=== PATIENT | male | born 1995 | race American Indian/Alaskan Native ===

== ENCOUNTER 2016-12-20 02:52 | Emergency (ER) | payer SELFPAY ==
[2016-12-20] MEDS ORDERED: XYLOCAINE 1% MPF 5 mL INFILTRATI ONE (10:06)
[2016-12-20] MEDS ORDERED: ROCEPHIN IM ONE (10:06)
[2016-12-20] MEDS ORDERED: DECADRON PO ONE (10:07)
--- NOTE | 2016-12-20 10:10 | Emergency Department Report ---
ED ENT HPI - General Chief complaint: Sore Throat Stated complaint: SORE THROAT Source: patient Mode of arrival: Ambulatory Limitations: No Limitations - History of Present Illness Initial comments: 21 y/o M presents with a sore throat that started on Saturday. Pt states that he had a noted fever on Saturday. Pt reports to a previous hx of strep in the past as a child. Pt denies any resp distress, chest pain, SOB, or difficulty breathing. Pt has not tried anything OTC at this time. Pt denies any reported sick contacts. Pt reports that he has been told as a child that he had an elevated BP and was told to monitor he denies any chest pain, headache, blurried vision, or jaw pain at this time. Pt states that the pain increases with swallowing. Denies any other URI symptoms, nausea, or vomiting. NKDA, pt is currently on no medications at home. MD complaint: sore throat, difficulty swallowing -: days(s) (4) Location: throat Severity scale (0 -10): 5 Quality: constant Consistency: constant Improves with: rest Worsens with: none Associated Symptoms: fever, pain with swallowing, sore throat. denies: cough, toothache, tinnitus, hearing loss, discharge from ear - Related Data Previous Rx's Medication Instructions Recorded Last Taken Type Amlodipine Besylate [Norvasc] 2.5 mg PO DAILY #30 tab 12/20/16 Unknown Rx Clindamycin [Clindamycin CAP] 300 mg PO Q8H #30 cap 12/20/16 Unknown Rx predniSONE [Deltasone] 10 mg PO QDAY #3 tab 12/20/16 Unknown Rx Allergies Allergy/AdvReac Type Severity Reaction Status Date / Time No Known Allergies Allergy Unverified 12/20/16 03:06 ED Dental HPI - General Chief complaint: Sore Throat Stated complaint: SORE THROAT Source: patient Mode of arrival: Ambulatory Limitations: No Limitations - History of Present Illness MD complaint: sore throat - Related Data Previous Rx's Medication Instructions Recorded Last Taken Type Amlodipine Besylate [Norvasc] 2.5 mg PO DAILY #30 tab 12/20/16 Unknown Rx Clindamycin [Clindamycin CAP] 300 mg PO Q8H #30 cap 12/20/16 Unknown Rx predniSONE [Deltasone] 10 mg PO QDAY #3 tab 12/20/16 Unknown Rx Allergies Allergy/AdvReac Type Severity Reaction Status Date / Time No Known Allergies Allergy Unverified 12/20/16 03:06 ED Review of Systems ROS: Stated complaint: SORE THROAT Other details as noted in HPI Constitutional: chills, fever Eyes: denies: eye pain, eye discharge, vision change ENT: throat pain. denies: ear pain, dental pain Respiratory: denies: cough, shortness of breath, wheezing Cardiovascular: denies: chest pain, palpitations Gastrointestinal: denies: abdominal pain, nausea, diarrhea Genitourinary: denies: urgency, dysuria Musculoskeletal: denies: back pain, joint swelling, arthralgia Skin: denies: rash, lesions Neurological: denies: headache, weakness, paresthesias Psychiatric: denies: anxiety, depression ED Past Medical Hx - Past Medical History Previous Medical History?: No - Surgical History Past Surgical History?: No - Social History Smoking Status: Current Every Day Smoker Substance Use Type: None - Medications Home Medications: Home Medications Medication Instructions Recorded Confirmed Last Taken Type Amlodipine Besylate [Norvasc] 2.5 mg PO DAILY #30 tab 12/20/16 Unknown Rx Clindamycin [Clindamycin CAP] 300 mg PO Q8H #30 cap 12/20/16 Unknown Rx predniSONE [Deltasone] 10 mg PO QDAY #3 tab 12/20/16 Unknown Rx ED Physical Exam - General Limitations: No Limitations General appearance: alert, in no apparent distress - Head Head exam: Present: atraumatic, normocephalic - Eye Eye exam: Present: normal appearance - ENT ENT exam: Present: other (swelling and erythema noted of bilateral tonsils, pus pockets noted bilaterally, there was no deviation of the uvula, no muffled/hot potato voice, no signs of resp distress noted at this time, airway was patent, no blockage or signs of resp distress) - Neck Neck exam: Present: normal inspection, lymphadenopathy (anterior ) - Respiratory Respiratory exam: Present: normal lung sounds bilaterally. Absent: respiratory distress - Cardiovascular Cardiovascular Exam: Present: regular rate, normal rhythm. Absent: systolic murmur, diastolic murmur, rubs, gallop - Neurological Exam Neurological exam: Present: alert, oriented X3 - Psychiatric Psychiatric exam: Present: normal affect, normal mood - Skin Skin exam: Present: warm, dry, intact, normal color. Absent: rash ED Course Vital Signs 12/20/16 12/20/16 12/20/16 02:57 03:02 08:40 Temperature 99.4 F 99.4 F Pulse Rate 76 69 Respiratory 18 18 16 Rate Blood Pressure 169/88 169/88 164/85 Blood Pressure [Left] O2 Sat by Pulse 99 99 Oximetry 12/20/16 12/20/16 12/20/16 08:41 10:38 10:39 Temperature 98.5 F 98.0 F Pulse Rate 58 L 57 L Respiratory 16 16 16 Rate Blood Pressure Blood Pressure 164/85 155/74 [Left] O2 Sat by Pulse 100 100 100 Oximetry ED Medical Decision Making - Medical Decision Making Rapid strep and mono spot were both conducted on the patient. Both of which were negative. A throat culture has been sent out for the patient at this time. Pt was treated based on clinical presentation and symptoms with Decadron ( 4 mg) and rocephin shot (1 g) here in the ED. Pt was discharged home on Clindamycin TID and prednisone for the swelling for the next 3 days- low dose. Pt was also started on amlodipine low dose for the the elevated BP readings, until he is able to follow-up with PCP. Pt was discharged in stable condition, no resp distress and alert and oriented. No neck stiffness and airway was patent. This case was discussed with Dr. Reed. Critical care attestation.: If time is entered above; I have spent that time in minutes in the direct care of this critically ill patient, excluding procedure time. ED Disposition Clinical Impression: Tonsillitis, Elevated blood pressure reading Disposition: - TO HOME OR SELFCARE Is pt being admited?: No Does the pt Need Aspirin: No Condition: Stable Instructions: Clindamycin (By mouth), Tonsillitis (ED), Low Sodium Diet (ED), Hypertension (ED) Additional Instructions: Please take medications as instructed to you today. Please follow-up with PCP for further evaluation of your blood pressure, uncontrolled blood pressure can be life threatening. Please keep a log of your BP, limit salt, and exercise. Follow-up with PCP within 3-5 days. Please monitor your Blood pressure while take the oral prednisone, which you should start tomorrow as you had a steriod shot today, if still greater than 130/85 please stop the prednisone as this can increased you BP levels. Please return to the ED if your symptoms progress or worsening such as: fever, chills, increased tonsil swelling, shortness of breath , or respiratory distress. Prescriptions: Amlodipine Besylate [Norvasc] 2.5 mg PO DAILY #30 tab Clindamycin [Clindamycin CAP] 300 mg PO Q8H #30 cap predniSONE [Deltasone] 10 mg PO QDAY #3 tab Referrals: PRIMARY CARE, [Primary Care Provider] - 3-5 Days [facility] [Outside] - 3-5 Days [facility] [Outside] - 3-5 Days Forms: Work/School Release Form(ED)
[2016-12-20 10:40] VITALS: BP 155/74
== END 2016-12-20 10:42 | disposition home or self-care (01) ==
LOC: ED 02:52
DX: J03.90 Acute tonsillitis, unspecified (principal); R03.0 Elevated blood-pressure reading, without diagnosis of hypertension; F17.200 Nicotine dependence, unspecified, uncomplicated
CPT/HCPCS: 36415; 86308; 87116; 87430; 96372; 99283; J0696; J8540

== ENCOUNTER 2017-04-08 09:54 | Emergency (ER) | payer SELFPAY ==
[2017-04-08 11:25] VITALS: BP 141/79
[2017-04-08] MEDS ORDERED: DECADRON IM ONE (14:39)
[2017-04-08] MEDS ORDERED: LIDOCAINE VISCOUS 2% PO ONE (14:39)
--- NOTE | 2017-04-08 14:49 | Emergency Department Report ---
ED ENT HPI - General Chief complaint: Sore Throat Stated complaint: SORE THROAT Time Seen by Provider: 04/08/17 13:21 Source: patient Mode of arrival: Ambulatory Limitations: No Limitations - History of Present Illness Initial comments: This is a 21-year-old male nontoxic, well nourished in appearance, no acute signs of distress presents to the ED with c/o of sore throat x3 days. Patient stated this is the 4th time this year that he developed this. Patient denies any drooling, hoarseness, fever, chills, headache, nausea, vomiting, chest pain , shortness of breathe, numbness, tingling, stiff neck. Patient denies any allergies or past medical history. MD complaint: sore throat -: days(s) (3) Location: throat Severity: mild Severity scale (0 -10): 8 Quality: aching Consistency: constant Improves with: none Worsens with: swallowing Associated Symptoms: pain with swallowing, sore throat. denies: fever, cough, gum swelling, toothache, tinnitus, hearing loss, discharge from ear, rhinorrhea - Related Data Previous Rx's Medication Instructions Recorded Last Taken Type Amlodipine Besylate [Norvasc] 2.5 mg PO DAILY #30 tab 12/20/16 Unknown Rx Clindamycin [Clindamycin CAP] 300 mg PO Q8H #30 cap 12/20/16 Unknown Rx predniSONE [Deltasone] 10 mg PO QDAY #3 tab 12/20/16 Unknown Rx Amoxicillin/K Clav Tab [Augmentin 1 each PO Q12HR #20 tablet 04/08/17 Unknown Rx 500 MG TAB] Nystas/Diphen/Xyl Visc/Mylanta 30 ml MM Q4H PRN 10 Days ml 04/08/17 Unknown Rx [Magic Mouthwash] Allergies Allergy/AdvReac Type Severity Reaction Status Date / Time No Known Allergies Allergy Unverified 12/20/16 03:06 ED Dental HPI - General Chief complaint: Sore Throat Stated complaint: SORE THROAT Time Seen by Provider: 04/08/17 13:21 Source: patient Mode of arrival: Ambulatory Limitations: No Limitations - Related Data Previous Rx's Medication Instructions Recorded Last Taken Type Amlodipine Besylate [Norvasc] 2.5 mg PO DAILY #30 tab 12/20/16 Unknown Rx Clindamycin [Clindamycin CAP] 300 mg PO Q8H #30 cap 12/20/16 Unknown Rx predniSONE [Deltasone] 10 mg PO QDAY #3 tab 12/20/16 Unknown Rx Amoxicillin/K Clav Tab [Augmentin 1 each PO Q12HR #20 tablet 04/08/17 Unknown Rx 500 MG TAB] Nystas/Diphen/Xyl Visc/Mylanta 30 ml MM Q4H PRN 10 Days ml 04/08/17 Unknown Rx [Magic Mouthwash] Allergies Allergy/AdvReac Type Severity Reaction Status Date / Time No Known Allergies Allergy Unverified 12/20/16 03:06 ED Review of Systems ROS: Stated complaint: SORE THROAT Other details as noted in HPI Constitutional: denies: chills, fever Eyes: denies: eye pain, eye discharge, vision change ENT: throat pain. denies: ear pain Respiratory: denies: cough, shortness of breath, wheezing Cardiovascular: denies: chest pain, palpitations Endocrine: no symptoms reported Gastrointestinal: denies: abdominal pain, nausea, diarrhea Genitourinary: denies: urgency, dysuria Musculoskeletal: denies: back pain, joint swelling, arthralgia Skin: denies: rash, lesions Neurological: denies: headache, weakness, paresthesias Psychiatric: denies: anxiety, depression Hematological/Lymphatic: denies: easy bleeding, easy bruising ED Past Medical Hx - Past Medical History Previous Medical History?: No - Surgical History Past Surgical History?: No - Social History Smoking Status: Current Every Day Smoker Substance Use Type: Alcohol - Medications Home Medications: Home Medications Medication Instructions Recorded Confirmed Last Taken Type Amlodipine Besylate [Norvasc] 2.5 mg PO DAILY #30 tab 12/20/16 Unknown Rx Clindamycin [Clindamycin CAP] 300 mg PO Q8H #30 cap 12/20/16 Unknown Rx predniSONE [Deltasone] 10 mg PO QDAY #3 tab 12/20/16 Unknown Rx Amoxicillin/K Clav Tab [Augmentin 1 each PO Q12HR #20 tablet 04/08/17 Unknown Rx 500 MG TAB] Nystas/Diphen/Xyl Visc/Mylanta 30 ml MM Q4H PRN 10 Days ml 04/08/17 Unknown Rx [Magic Mouthwash] ED Physical Exam - General Limitations: No Limitations General appearance: alert, in no apparent distress - Head Head exam: Present: atraumatic, normocephalic, normal inspection - Eye Eye exam: Present: normal appearance, PERRL, EOMI. Absent: scleral icterus, conjunctival injection, nystagmus, periorbital swelling, periorbital tenderness Pupils: Present: normal accommodation - ENT ENT exam: Present: mucous membranes moist, TM's normal bilaterally, normal external ear exam - Expanded ENT Exam Expanded Ear exam: Present: normal external inspection Mouth exam: Present: normal external inspection, tongue normal. Absent: drooling, trismus, muffled voice, tongue elevation, laceration Teeth exam: Present: normal inspection Throat exam: Positive: tonsillar erythema, tonsillomegaly (2+), tonsillar exudate, other (Uvula midline. No abscess or swelling noted. ). Negative: R peritonsillar mass, L peritonsillar mass - Neck Neck exam: Present: normal inspection, full ROM. Absent: tenderness, meningismus, lymphadenopathy, thyromegaly - Respiratory Respiratory exam: Present: normal lung sounds bilaterally. Absent: respiratory distress, wheezes, rales, rhonchi, stridor, chest wall tenderness, accessory muscle use, decreased breath sounds, prolonged expiratory - Cardiovascular Cardiovascular Exam: Present: regular rate, normal rhythm, normal heart sounds. Absent: irregular rhythm, systolic murmur, diastolic murmur, rubs, gallop - GI/Abdominal GI/Abdominal exam: Present: soft, normal bowel sounds. Absent: distended, tenderness, guarding, rebound, rigid, diminished bowel sounds - Rectal Rectal exam: Present: deferred - Extremities Exam Extremities exam: Present: normal inspection, full ROM, normal capillary refill. Absent: tenderness, pedal edema, joint swelling, calf tenderness - Back Exam Back exam: Present: normal inspection, full ROM. Absent: tenderness, CVA tenderness (R), CVA tenderness (L), muscle spasm, paraspinal tenderness, vertebral tenderness, rash noted - Neurological Exam Neurological exam: Present: alert, oriented X3, CN II-XII intact, normal gait, reflexes normal - Psychiatric Psychiatric exam: Present: normal affect, normal mood - Skin Skin exam: Present: warm, dry, intact, normal color. Absent: rash ED Course Vital Signs 04/08/17 11:24 Temperature 98.9 F Pulse Rate 62 Respiratory 16 Rate Blood Pressure 141/79 O2 Sat by Pulse 99 Oximetry - Reevaluation(s) Reevaluation #1: 04/08/17 14:59 Patient is speaking in full sentences with no signs of distress noted. ED Medical Decision Making - Medical Decision Making This is a 21-year-old male that presents with tonsillitis with exudate. Patient is stable and was examined by me. No signs of abscess or swelling noted. Uvula midline. Patient is not drooling and speaking in full sentences. Negative strep swab. Decadron 10mg IM and Lidocaine visous is ordered for patient to receive in the ED. Due to patient stated has a recurrent infection and the tonsils I will give patient Augmentin distress. Patient was instructed to Follow-up with a primary care doctor/ENT doctor in 3-5 days or if symptoms worsen and continue return to emergency room as soon as possible. At time time of discharge, the patient does not seem toxic or ill in appearance. No acute signs of distress noted. Patient agrees to discharge treatment plan of care. No further questions noted by the patient. Critical care attestation.: If time is entered above; I have spent that time in minutes in the direct care of this critically ill patient, excluding procedure time. ED Disposition Clinical Impression: Tonsillitis with exudate Disposition: DC-01 TO HOME OR SELFCARE Is pt being admited?: No Does the pt Need Aspirin: No Condition: Stable Instructions: Amoxicillin/Clavulanate Potassium (By mouth), Tonsillitis (ED) Additional Instructions: Follow-up with a primary care doctor/ENT doctor in 3-5 days or if symptoms worsen and continue return to emergency room as soon as possible. Prescriptions: Amoxicillin/K Clav Tab [Augmentin 500 MG TAB] 1 each PO Q12HR #20 tablet Nystas/Diphen/Xyl Visc/Mylanta [Magic Mouthwash] 30 ml MM Q4H PRN 10 Days ml PRN Reason: Sore Throat Referrals: MASTER LEUNG MD [Primary Care Provider] - 3-5 Days PRIMARY CARE, [Referring] - 3-5 Days [facility] [Outside] - 3-5 Days [facility] [Outside] - 3-5 Days Forms: Work/School Release Form(ED)
== END 2017-04-08 15:30 | disposition home or self-care (01) ==
LOC: ED 09:54
DX: J03.90 Acute tonsillitis, unspecified (principal); F17.200 Nicotine dependence, unspecified, uncomplicated
CPT/HCPCS: 87116; 87430; 96372

== ENCOUNTER 2018-04-05 00:53 | Emergency (ER) | payer SELFPAY ==
[2018-04-05 01:06] VITALS: BP 142/72
[2018-04-05] MEDS ORDERED: IBUPROFEN PO ONE (06:50)
--- NOTE | 2018-04-05 06:50 | Emergency Department Report ---
ED ENT HPI - General Chief complaint: Sore Throat Stated complaint: SORE THORAT Source: patient Mode of arrival: Ambulatory Limitations: No Limitations - History of Present Illness Initial comments: 22-year-old -[place] male presents to the emergency room for sore throat 4 days. Patient has not taken anything for pain and reports his only use cough drops. Patient denies any fever chills or shortness of breathing or chest pain or nausea no vomiting. Patient does admit to pain with swallowing. Patient reports no past medical history currently takes no medications on a daily basis and has no known drug allergies. MD complaint: sore throat -: days(s) (4) Location: throat Severity scale (0 -10): 5 Quality: stabbing, sharp Consistency: intermittent Improves with: none Worsens with: swallowing Associated Symptoms: pain with swallowing, sore throat - Related Data Previous Rx's Medication Instructions Recorded Last Taken Type Amlodipine Besylate [Norvasc] 2.5 mg PO DAILY #30 tab 12/20/16 Unknown Rx Clindamycin [Clindamycin CAP] 300 mg PO Q8H #30 cap 12/20/16 Unknown Rx predniSONE [Deltasone] 10 mg PO QDAY #3 tab 12/20/16 Unknown Rx Amoxicillin/K Clav Tab [Augmentin 1 each PO Q12HR #20 tablet 04/08/17 Unknown Rx 500 MG TAB] Nystas/Diphen/Xyl Visc/Mylanta 30 ml MM Q4H PRN 10 Days ml 04/08/17 Unknown Rx [Magic Mouthwash] Amoxicillin [Amoxicillin TAB] 875 mg PO BID #20 tablet 04/05/18 Unknown Rx Ibuprofen [Motrin 600 MG tab] 600 mg PO Q8H PRN #15 tablet 04/05/18 Unknown Rx Allergies Allergy/AdvReac Type Severity Reaction Status Date / Time No Known Allergies Allergy Unverified 12/20/16 03:06 ED Dental HPI - General Chief complaint: Sore Throat Stated complaint: SORE THORAT Source: patient Mode of arrival: Ambulatory Limitations: No Limitations - Related Data Previous Rx's Medication Instructions Recorded Last Taken Type Amlodipine Besylate [Norvasc] 2.5 mg PO DAILY #30 tab 12/20/16 Unknown Rx Clindamycin [Clindamycin CAP] 300 mg PO Q8H #30 cap 12/20/16 Unknown Rx predniSONE [Deltasone] 10 mg PO QDAY #3 tab 12/20/16 Unknown Rx Amoxicillin/K Clav Tab [Augmentin 1 each PO Q12HR #20 tablet 04/08/17 Unknown Rx 500 MG TAB] Nystas/Diphen/Xyl Visc/Mylanta 30 ml MM Q4H PRN 10 Days ml 04/08/17 Unknown Rx [Magic Mouthwash] Amoxicillin [Amoxicillin TAB] 875 mg PO BID #20 tablet 04/05/18 Unknown Rx Ibuprofen [Motrin 600 MG tab] 600 mg PO Q8H PRN #15 tablet 04/05/18 Unknown Rx Allergies Allergy/AdvReac Type Severity Reaction Status Date / Time No Known Allergies Allergy Unverified 12/20/16 03:06 ED Review of Systems ROS: Stated complaint: SORE THORAT Other details as noted in HPI Comment: All other systems reviewed and negative ENT: throat pain Respiratory: denies: cough ED Past Medical Hx - Past Medical History Previous Medical History?: Yes Hx Hypertension: Yes Hx Diabetes: Yes - Surgical History Past Surgical History?: No - Social History Smoking Status: Current Every Day Smoker Substance Use Type: Alcohol - Medications Home Medications: Home Medications Medication Instructions Recorded Confirmed Last Taken Type Amlodipine Besylate [Norvasc] 2.5 mg PO DAILY #30 tab 12/20/16 Unknown Rx Clindamycin [Clindamycin CAP] 300 mg PO Q8H #30 cap 12/20/16 Unknown Rx predniSONE [Deltasone] 10 mg PO QDAY #3 tab 12/20/16 Unknown Rx Amoxicillin/K Clav Tab [Augmentin 1 each PO Q12HR #20 tablet 04/08/17 Unknown Rx 500 MG TAB] Nystas/Diphen/Xyl Visc/Mylanta 30 ml MM Q4H PRN 10 Days ml 04/08/17 Unknown Rx [Magic Mouthwash] Amoxicillin [Amoxicillin TAB] 875 mg PO BID #20 tablet 04/05/18 Unknown Rx Ibuprofen [Motrin 600 MG tab] 600 mg PO Q8H PRN #15 tablet 04/05/18 Unknown Rx ED Physical Exam - General Limitations: No Limitations General appearance: alert, in no apparent distress - Head Head exam: Present: atraumatic, normocephalic - Eye Eye exam: Present: EOMI - ENT ENT exam: Present: mucous membranes moist - Expanded ENT Exam Expanded Throat exam: Positive: tonsillar erythema, tonsillomegaly, tonsillar exudate - Neck Neck exam: Present: normal inspection, tenderness, full ROM, lymphadenopathy - Respiratory Respiratory exam: Present: normal lung sounds bilaterally. Absent: respiratory distress - Cardiovascular Cardiovascular Exam: Present: regular rate, normal rhythm. Absent: systolic murmur, diastolic murmur, rubs, gallop - Neurological Exam Neurological exam: Present: alert, oriented X3 - Psychiatric Psychiatric exam: Present: normal affect, normal mood - Skin Skin exam: Present: warm, dry, intact, normal color. Absent: rash ED Course Vital Signs 04/05/18 01:04 Temperature 99.1 F Pulse Rate 93 H Respiratory 20 Rate Blood Pressure 142/72 O2 Sat by Pulse 98 Oximetry ED Medical Decision Making - Medical Decision Making Patient has been evaluated by this provider in fast track. Ibuprofen 600 mg given for pain management Throat culture came back negative Patient meets [facility] criteria we'll treat for strep throat. Patient be given prescription for amoxicillin 875 by mouth twice a day for 10 days and ibuprofen 600 mg by mouth 3 times a day when necessary with instructions to increase his fluid intake while taking medication. Critical care attestation.: If time is entered above; I have spent that time in minutes in the direct care of this critically ill patient, excluding procedure time. ED Disposition Clinical Impression: Acute sore throat Disposition: DC-01 TO HOME OR SELFCARE Is pt being admited?: No Does the pt Need Aspirin: No Condition: Stable Instructions: Strep Throat (ED) Additional Instructions: Please complete antibiotics as prescribed. Ibuprofen for pain as needed. Please increase her water intake by 2 L daily. If her symptoms persist or gets worse please follow up with her primary care provider. Prescriptions: Amoxicillin [Amoxicillin TAB] 875 mg PO BID #20 tablet Ibuprofen [Motrin 600 MG tab] 600 mg PO Q8H PRN #15 tablet PRN Reason: Pain Referrals: PRIMARY CARE, [Primary Care Provider] - 3-5 Days [facility] [Provider Group] - 3-5 Days Forms: Work/School Release Form(ED)
== END 2018-04-05 07:05 | disposition home or self-care (01) ==
LOC: ED 00:53
DX: J02.0 Streptococcal pharyngitis (principal); I10 Essential (primary) hypertension; E11.9 Type 2 diabetes mellitus without complications; F17.200 Nicotine dependence, unspecified, uncomplicated
CPT/HCPCS: 87116; 87430; 99283